=== PATIENT | male | born 1955 | race Caucasian/White ===

== ENCOUNTER 2023-11-10 16:59 | Emergency (ER) | payer MEDICARE ==
[2023-11-10] MEDS ORDERED: Lidocaine 1% PF 5 ML VIAL ONE (18:42)
[2023-11-10] MEDS ORDERED: Boostrix 0.5 ML (Tdap) VIAL (>/=7 yrs of age) ONE (18:42)
[2023-11-10] MEDS ORDERED: Cephalexin 250 MG CAP ONE (20:47)
[2023-11-10] MEDS ORDERED: Ciprofloxacin 500 MG TAB ONE (20:47)
== END 2023-11-10 21:01 | disposition home or self-care (01) ==
LOC: ERS 16:59
DX: S91.312A Laceration without foreign body, left foot, initial encounter (principal); I10 Essential (primary) hypertension; E11.9 Type 2 diabetes mellitus without complications; I25.10 Atherosclerotic heart disease of native coronary artery without angina pectoris; F17.210 Nicotine dependence, cigarettes, uncomplicated; Z23 Encounter for immunization; Z95.5 Presence of coronary angioplasty implant and graft; Z79.84 Long term (current) use of oral hypoglycemic drugs
CPT/HCPCS: 12002; 90471; 90715